=== PATIENT | male | born 1980 | race Hispanic/Latino ===

== ENCOUNTER 2017-11-09 12:24 | Emergency (ER) | payer SELFPAY ==
[2017-11-09 12:29] VITALS: BP 135/81
[2017-11-09] MEDS ORDERED: ZOFRAN ODT PO ONE (16:27)
--- NOTE | 2017-11-09 16:34 | Emergency Department Report ---
Chief Complaint: Upper Respiratory Infection Stated Complaint: FLU LIKE SYMPTOMS Time Seen by Provider: 11/09/17 15:50 - HPI History of Present Illness: Patient is a 37-year-old male with no significant past medical history was presented with a cough. Patient's cough is productive of clear to yellow phlegm. Patient states he also has had a sour stomach and nausea vomiting for the past 2 days. Cough has been present for 5 days. Patient is a former smoker but currently does still date. Her body aches as well denies diarrhea syncope chest pain or abdominal pain at this time - ROS Review of Systems: Review of systems is negative except for those elements in the HPI - Exam Vital Signs: Vital Signs 11/09/17 12:27 Temperature 97.8 F Pulse Rate 78 Respiratory 20 Rate Blood Pressure 135/81 O2 Sat by Pulse 98 Oximetry Physical Exam: Focused physical exam patient will general exam no acute distress lungs clear to auscultation chest normal heart tones no rash abdomen soft nontender nondistended skin normal neural exam motor extremity spontaneous vein O 3 MSE screening note: Focused history and physical exam performed. Due to findings the following was ordered: ED Medical Decision Making - Radiology Data Radiology results: image reviewed interpreted by me: No acute process - Medical Decision Making Patient is a former smoker will be treated for smoker's bronchitis with antibiotics and steroids nausea medicine ED Disposition for MSE Disposition: DC-01 TO HOME OR SELFCARE Is pt being admited?: No Does the pt Need Aspirin: No Condition: Fair Prescriptions: Azithromycin [Zithromax Z-STUART] 250 mg PO DAILY 5 Days #6 tablet Benzonatate [Tessalon Perles] 100 mg PO Q8HR #15 capsule Ondansetron [Zofran Odt] 4 mg PO Q8HR #12 tab.rapdis predniSONE [Deltasone] 20 mg PO QDAY #5 tab Referrals: CASEY SINGH MD [Primary Care Provider] - 3-5 Days
--- NOTE | 2017-11-09 18:03 | XRay Report ---
FINAL REPORT EXAM: XR CHEST ROUTINE 2V HISTORY: [facility] TECHNIQUE: Two view chest PA and lateral PRIORS: None. FINDINGS: Cardiac and mediastinal contours are unremarkable. No focal pulmonary infiltrate is identified. No pleural fluid collection seen. Pulmonary vasculature is unremarkable. IMPRESSION: Negative two-view chest
== END 2017-11-09 16:57 | disposition home or self-care (01) ==
LOC: ED 12:24
DX: R05 Cough (principal); R11.2 Nausea with vomiting, unspecified; Z53.21 Procedure and treatment not carried out due to patient leaving prior to being seen by health care provider
CPT/HCPCS: 71020; Q0162

== ENCOUNTER 2017-11-14 13:36 | Emergency (ER) | payer SELFPAY ==
[2017-11-14 13:41] VITALS: BP 125/79
[2017-11-14 14:05] LABS: Basophils % (Auto) 0.4 % (0.0-1.8); Eosinophils % (Auto) 0.4 % (0.0-4.3); Hematocrit 49.8 % (35.5-45.6); Hemoglobin 17.3 gm/dl (11.8-15.2); Mean Corpuscular HGB Conc 35 % (32-34); Mean Corpuscular Hemoglobin 31 pg (28-32); Mean Corpuscular Volume 90 fl (84-94); Platelet Count 301 K/mm3 (140-440); Red Blood Count 5.54 M/mm3 (3.65-5.03); White Blood Count 15.2 K/mm3 (4.5-11.0)
[2017-11-14 14:16] LABS: Anion Gap 19 mmol/L; BUN/Creatinine Ratio 14; Blood Urea Nitrogen 14 mg/dL (9-20); Calcium 9.4 mg/dL (8.4-10.2); Carbon Dioxide 28 mmol/L (22-30); Glucose 107 mg/dL (75-100); Potassium 3.7 mmol/L (3.6-5.0); Sodium 143 mmol/L (137-145)
== END 2017-11-14 18:45 | disposition left against medical advice (07) ==
LOC: ED 13:36
DX: R11.10 Vomiting, unspecified (principal); Z53.21 Procedure and treatment not carried out due to patient leaving prior to being seen by health care provider
CPT/HCPCS: 36415; 80048; 85025

== ENCOUNTER 2020-08-29 14:06 | Emergency (ER) | payer SELFPAY ==
[2020-08-29] MEDS ORDERED: ONDANSETRON 4 MG/2 ML INJ IV ONE (16:12)
[2020-08-29] MEDS ORDERED: SODIUM CHLORIDE 0.9% 1000 ML 1,000 ML IV ONE ×2 (16:12→17:21)
--- NOTE | 2020-08-29 16:12 | Emergency Department Report ---
Vomiting/Diarrhea - HPI Chief Complaint: Nausea/Vomiting/Diarrhea Stated Complaint: VOMIT Time Seen by Provider: 08/29/20 15:14 Duration: 4 Days Severity: mild Nausea/Vomiting Severity: Mild Diarrhea Severity: None Pain Location: Other (Sore throat) Symptoms: Yes Able to Tolerate Fluids (Drinking Pedialyte), No Watery Diarrhea, No Bloody diarrhea, No Fever, No Recent Unusual Foods, No Recent Untreated Water, No Recent use of Antibiotics, No Family w/ Similar Symptoms, No Contacts w/ Similar Symptoms, No Rash, No Hematuria, No Recent URI Symptoms Other History: 40-year-old male presents to the emergency room for body aches sore throat with nausea and vomiting since Monday. Patient denies any fever chills no abdominal pain. Patient states he last vomited 2 hours ago. Patient is been able to hold down Pedialyte. He denies any past medical history. Currently takes no medications on a daily basis and has no known drug allergies. ED Review of Systems ROS: Stated complaint: VOMIT Other details as noted in HPI Comment: All other systems reviewed and negative ED Past Medical Hx - Past Medical History Previous Medical History?: No - Surgical History Past Surgical History?: Yes Additional Surgical History: left hand surgery. T&A. Sinus - Social History Smoking Status: Never Smoker Substance Use Type: None - Medications Home Medications: Home Medications Medication Instructions Recorded Confirmed Last Taken Type cephALEXin [Keflex] 500 mg PO BID #20 capsule 04/14/15 Unknown Rx Docusate Sodium [Colace] 100 mg PO BID PRN #20 capsule 07/13/16 Unknown Rx HYDROcodone/APAP 5-325 [[place] 1 each PO Q6HR PRN #20 tablet 07/13/16 Unknown Rx 5/325] Ibuprofen [Motrin 800 MG tab] 800 mg PO TID PRN #30 tablet 07/13/16 Unknown Rx Ondansetron [Zofran Odt] 4 mg PO Q8HR PRN #30 tab.rapdis 07/13/16 Unknown Rx Azithromycin [Zithromax Z-STUART] 250 mg PO DAILY 5 Days #6 tablet 11/09/17 Unknown Rx Benzonatate [Tessalon Perles] 100 mg PO Q8HR #15 capsule 11/09/17 Unknown Rx Ondansetron [Zofran Odt] 4 mg PO Q8HR #12 tab.rapdis 11/09/17 Unknown Rx predniSONE [Deltasone] 20 mg PO QDAY #5 tab 11/09/17 Unknown Rx Naproxen 500 mg PO BID #20 tablet 08/17/20 Unknown Rx methOCARBAMOL [Robaxin TAB] 500 mg PO Q6H #20 tablet 08/17/20 Unknown Rx methylPREDNISolone [Medrol 4MG 4 mg PO QDAY #1 tab.ds.pk 08/17/20 Unknown Rx DOSEPAK (21 tabs)] Ondansetron [Zofran Odt] 4 mg PO Q8HR #12 tab.rapdis 08/29/20 Unknown Rx Vomiting Diarrhea Exam - Exam General: Vital signs noted. No distress. Alert and acting appropriately. Neurologic: Alert and oriented, no deficits. Musculoskeletal: Unremarkable. ED Course Vital Signs 08/29/20 14:12 Temperature 98.2 F Pulse Rate 89 Respiratory 16 Rate Blood Pressure 119/79 [Right] O2 Sat by Pulse 97 Oximetry ED Medical Decision Making - Lab Data Result diagrams: 08/29/20 16:17 08/29/20 16:17 - Radiology Data Radiology results: report reviewed Referring Physician:SERGIO CARLTONPatient Name:LYNDA VALDOVINOSPatient ID:[id number] of :[id number]:MaleAccession:[id number] Da te:[id number] Status:Finalized Findings [address] [address] XRay Report Signed Patient: LYNDA VALDOVINOS MR#: [id number] : 1980 Acct:[id number] Age/Sex: 40 / M ADM Date: 08/29/20 Loc: ED Attending Dr: Ordering Physician: CAITLYN LEAVITT Date of Service: 08/29/20 Procedure(s): XR chest 1V ap Accession Number(s): [id number] cc: CAITLYN LEAVITT Fluoro Time In Minutes: CHEST 1 VIEW, 08/29/2020 3:46 PM CLINICAL INFORMATION/INDICATION: Cough COMPARISON: Chest radiograph, 11/09/2017 FINDINGS: SUPPORT DEVICES: None. HEART: The cardiac silhouette is normal in size. LUNGS/PLEURA: The lungs appear clear of focal airspace disease or significant pleural effusion. ADDITIONAL FINDINGS: No additional acute findings. IMPRESSION: 1. No evidence of acute cardiopulmonary process. Signer Name: Ines Chandler MD Signed: 08/29/2020 4:51 PM Workstation Name: [id number] Transcribed By: LILLIANA Dictated By: Ines Chandler MD Electronically Authenticated By: Ines Chandler MD Signed Date/Time: 08/29/201650 DD/ 49 TD/TT: Referring Physician:SERGIO CARLTONPatient Name:LYNDA VALDOVINOSPatient ID:[id number] of :[id number]:MaleAccession:[id number] Date:[id number] Status:[place] [id number] Cat Scan Report Signed Patient: LYNDA VALDOVINOS MR#: [id number] : 1980 Acct:[id number] Age/Sex: 40 / M ADM Date: 08/29/20 Loc: ED Attending Dr: Ordering Physician: CAITLYN LEAVITT Date of Service: 08/29/20 Procedure(s): CT abdomen pelvis w con Accession Number(s): [id number] cc: CAITLYN LEAVITT CT ABDOMEN AND PELVIS WITH IV CONTRAST INDICATION: Nausea and vomiting for 4 days TECHNIQUE: Following the administration of intravenous contrast, multiple axial CT images of the abdomen and pelvis were acquired. Sagittal and coronal reformats were obtained. All CT performed at this facility utilize dose reduction techniques including automated exposure control, iterative reconstruction and weight based dosing when appropriate to reduce patient radiation dose to as low as reasonably achievable. COMPARISON: CT of the abdomen and pelvis, 07/13/2016 FINDINGS: Limited imaging of the bilateral lung bases demonstrates no acute abnormality. Abdomen: The liver, gallbladder, spleen, pancreas, bilateral adrenal glands and bilateral kidneys show no evidence of acute abnormality. Several simple cysts are again noted within the left kidney, the largest of which measures 1.8 cm. The abdominal aorta is normal in caliber. There is no evidence of bowel obstruction or free fluid. The appendix is visualized and appears normal. Pelvis: No free fluid is seen within the pelvis. The urinary bladder appears normal. A few coarse central calcifications are again noted within the prostate. Bones and Soft Tissues: Evaluation of bony structures demonstrates no evidence of acute bony abnormality. Soft tissue structures appear grossly normal. IMPRESSION: 1. No evidence of acute inflammatory or obstructive process within the abdomen or pelvis. Signer Name: Ines Chandler MD Signed: 08/29/2020 6:19 PM Workstation Name: [id number] Transcribed By: EB Dictated By: Ines Chandler MD Electronically Authenticated By: Ines Chandler MD Signed Date/Time: 08/29/201818 DD/ 14 TD/TT: - Medical Decision Making 40-year-old male presents to the emergency room for body aches sore throat with nausea and vomiting since Monday. Patient denies any fever chills no abdominal pain. Patient states he last vomited 2 hours ago. Patient is been able to hold down Pedialyte. He denies any past medical history. Currently takes no medications on a daily basis and has no known drug allergies. Patient started on a p.o. challenge. Patient failed p.o. challenge. Will place an IV normal saline Zofran 4 mg IV chest x-ray CBC CMP. Critical care attestation.: If time is entered above; I have spent that time in minutes in the direct care of this critically ill patient, excluding procedure time. ED Disposition Clinical Impression: Nausea and vomiting in adult patient, Cannabis hyperemesis syndrome concurrent with and due to cannabis dependence Disposition: DC-01 TO HOME OR SELFCARE Is pt being admited?: No Does the pt Need Aspirin: No Condition: Stable Instructions: Acute Nausea and Vomiting (ED), Cannabis Abuse (ED) Additional Instructions: Cannabinoid hyperemesis syndrome Cannabinoid hyperemesis syndrome is recurrent nausea, vomiting, and cramping ab dominal pain due to cannabis use. These symptoms may improve temporarily by taking a hot shower or bath. Complications may include kidney failure, electrolyte problems, and skin solorzano from hot water. A few deaths due to these complications have occurred. Please take the Zofran stop smoking weed as this can cause nausea and vomiting. Increase your fluid intake advance your diet as tolerated follow-up with your primary care provider. Prescriptions: Ondansetron [Zofran Odt] 4 mg PO Q8HR #12 tab.rapdis Referrals: [facility] [Provider Group] - 3-5 Days
[2020-08-29 16:30] LABS: Mean Corpuscular HGB Conc 35 % (32-34); Mean Corpuscular Volume 92 fl (84-94); Platelet Count 306 K/mm3 (140-440); Red Blood Count 6.17 M/mm3 (3.65-5.03); Red Cell Distribution Width 12.9 % (13.2-15.2)
[2020-08-29 16:46] LABS: Hematocrit 56.6 % (35.5-45.6)
[2020-08-29 16:53] LABS: Alanine Aminotransferase 41 units/L (7-56); Albumin 5.3 g/dL (3.9-5); BUN/Creatinine Ratio 24; Blood Urea Nitrogen 24 mg/dL (9-20); Calcium 10.4 mg/dL (8.4-10.2); Hemolysis Index 158
--- NOTE | 2020-08-29 16:56 | XRay Report ---
CHEST 1 VIEW, 08/29/2020 3:46 PM CLINICAL INFORMATION/INDICATION: Cough COMPARISON: Chest radiograph, 11/09/2017 FINDINGS: SUPPORT DEVICES: None. HEART: The cardiac silhouette is normal in size. LUNGS/PLEURA: The lungs appear clear of focal airspace disease or significant pleural effusion. ADDITIONAL FINDINGS: No additional acute findings. IMPRESSION: 1. No evidence of acute cardiopulmonary process. Signer Name: Ines Chandler MD Signed: 08/29/2020 4:51 PM Workstation Name: [id number]
[2020-08-29] MEDS ORDERED: METOCLOPRAMIDE 10 MG/2 ML INJ IV ONE (17:21)
[2020-08-29 17:48] LABS: Bilirubin,Urine NEG (Negative); Blood,Urine SM (Negative); Color,Urine Amber (Yellow); Mucus,Urine 3+ /HPF
[2020-08-29 18:20] LABS: Basophils % (Manual) 0 % (0.0-1.8); Eosinophils % (Manual) 0 % (0.0-4.3); RBC Morphology Normal; Total Cells Counted 100
--- NOTE | 2020-08-29 18:24 | Cat Scan Report ---
CT ABDOMEN AND PELVIS WITH IV CONTRAST INDICATION: Nausea and vomiting for 4 days TECHNIQUE: Following the administration of intravenous contrast, multiple axial CT images of the abdo men and pelvis were acquired. Sagittal and coronal reformats were obtained. All CT performed at this facility utilize dose reduction techniques including automated exposure control, iterative reconstru ction and weight based dosing when appropriate to reduce patient radiation dose to as low as reasonab ly achievable. COMPARISON: CT of the abdomen and pelvis, 07/13/2016 FINDINGS: Limited imaging of the bilateral lung bases demonstrates no acute abnormality. Abdomen: The liver, gallbladder, spleen, pancreas, bilateral adrenal glands and bilateral kidneys ty w no evidence of acute abnormality. Several simple cysts are again noted within the left kidney, the largest of which measures 1.8 cm. The abdominal aorta is normal in caliber. There is no evidence of b owel obstruction or free fluid. The appendix is visualized and appears normal. Pelvis: No free fluid is seen within the pelvis. The urinary bladder appears normal. A few coarse vlad tral calcifications are again noted within the prostate. Bones and Soft Tissues: Evaluation of bony structures demonstrates no evidence of acute bony abnormal ity. Soft tissue structures appear grossly normal. IMPRESSION: 1. No evidence of acute inflammatory or obstructive process within the abdomen or pelvis. Signer Name: Ines Chandler MD Signed: 08/29/2020 6:19 PM Workstation Name: [id number]
[2020-08-29 18:25] LABS: Amphetamine Screen,Urine PRESUMPTIVE NEGATIVE; Benzodiazepines Screen,Urine PRESUMPTIVE NEGATIVE; Cannabinoid Screen,Urine PRESUMPTIVE POSITIVE; Cocaine Screen,Urine PRESUMPTIVE NEGATIVE; Methadone Screen,Urine PRESUMPTIVE NEGATIVE; Opiate Screen,Urine PRESUMPTIVE NEGATIVE
[2020-08-29 18:44] LABS: Basophils % (Auto) 0.3 % (0.0-1.8); Eosinophils % (Auto) 0.1 % (0.0-4.3); Lymphocytes # (Auto) 1.6 K/mm3 (1.2-5.4); Lymphocytes % (Auto) 9.3 % (13.4-35.0); Mean Corpuscular HGB Conc 37 % (32-34); Mean Corpuscular Volume 90 fl (84-94); Monocytes # (Auto) 1.5 K/mm3 (0.0-0.8); Monocytes % (Auto) 8.3 % (0.0-7.3); Platelet Count 244 K/mm3 (140-440); Red Cell Distribution Width 12.7 % (13.2-15.2)
[2020-08-29 18:52] LABS: Hematocrit 48.4 % (35.5-45.6); Hemoglobin 17.6 gm/dl (11.8-15.2)
[2020-08-29 19:23] VITALS: BP 125/86
== END 2020-08-29 19:27 | disposition home or self-care (01) ==
LOC: ED 14:06
DX: F12.288 Cannabis dependence with other cannabis-induced disorder (principal); R11.2 Nausea with vomiting, unspecified; Z79.899 Other long term (current) drug therapy; Z98.890 Other specified postprocedural states
CPT/HCPCS: 36415; 71045; 74177; 80053; 80307; 81001; 83690; 85007; 85025; 96361; 96374; 96375; 99284; J2405; J2765; J7030; Q9967

== ENCOUNTER 2020-12-29 12:22 | Emergency (ER) | payer SELFPAY ==
[2020-12-29 12:47] VITALS: BP 130/64
[2020-12-29] MEDS ORDERED: ONDANSETRON 4 MG/2 ML INJ IV ONE (12:48)
[2020-12-29] MEDS ORDERED: SODIUM CHLORIDE 0.9% 1000 ML 1,000 ML IV ONE ×2 (12:48→13:47)
[2020-12-29] MEDS ORDERED: PROCHLORPERAZINE EDISYLATE 10 MG/2 ML VIAL IV ONE (13:00)
--- NOTE | 2020-12-29 13:02 | Emergency Department Report ---
ED N/V/D HPI - General Chief complaint: Nausea/Vomiting/Diarrhea Stated complaint: VOMITING Time Seen by Provider: 12/29/20 12:48 Source: patient Mode of arrival: Ambulatory Limitations: No Limitations - History of Present Illness Initial comments: Patient is a 40-year-old male who presents emergency room complaints of nausea and vomiting that began 3 days ago. He states that he is unable to tolerate by mouth intake. He denies any diarrhea, abdominal pain, back pain, urinary symptoms, hematochezia, melena, hematemesis, pain or swelling in the testicles. Patient was evaluated emergency department in August 2020 for the same symptoms and had a normal CT abdomen pelvis at that time. Patient's UDS was positive for marijuana at that time. He endorses heavy marijuana use and states that he last smoked 3 days ago. He reports that he "does not believe the marijuana is causing his symptoms and that the marijuana helps his appetite." He denies any past medical history. No allergies to medications. He endorses occasional alcohol use. He denies any other drug use. - Related Data Previous Rx's Medication Instructions Recorded Last Taken Type cephALEXin [Keflex] 500 mg PO BID #20 capsule 04/14/15 Unknown Rx Docusate Sodium [Colace] 100 mg PO BID PRN #20 capsule 07/13/16 Unknown Rx HYDROcodone/APAP 5-325 [[place] 1 each PO Q6HR PRN #20 tablet 07/13/16 Unknown Rx 5/325] Ibuprofen [Motrin 800 MG tab] 800 mg PO TID PRN #30 tablet 07/13/16 Unknown Rx Ondansetron [Zofran Odt] 4 mg PO Q8HR PRN #30 tab.rapdis 07/13/16 Unknown Rx Azithromycin [Zithromax Z-STUART] 250 mg PO DAILY 5 Days #6 tablet 11/09/17 Unknown Rx Benzonatate [Tessalon Perles] 100 mg PO Q8HR #15 capsule 11/09/17 Unknown Rx Ondansetron [Zofran Odt] 4 mg PO Q8HR #12 tab.rapdis 11/09/17 Unknown Rx predniSONE [Deltasone] 20 mg PO QDAY #5 tab 11/09/17 Unknown Rx Naproxen 500 mg PO BID #20 tablet 08/17/20 Unknown Rx methOCARBAMOL [Robaxin TAB] 500 mg PO Q6H #20 tablet 08/17/20 Unknown Rx methylPREDNISolone [Medrol 4MG 4 mg PO QDAY #1 tab.ds.pk 08/17/20 Unknown Rx DOSEPAK (21 tabs)] Ondansetron [Zofran Odt] 4 mg PO Q8HR #12 tab.rapdis 08/29/20 Unknown Rx Ondansetron [Zofran Odt] 4 mg PO Q8HR PRN #10 tab.rapdis 12/29/20 Unknown Rx Promethazine [Phenergan] 25 mg MI Q8HR PRN #7 supp.rect 12/29/20 Unknown Rx Allergies Allergy/AdvReac Type Severity Reaction Status Date / Time No Known Allergies Allergy Verified 12/29/20 12:42 ED Review of Systems ROS: Stated complaint: VOMITING Other details as noted in HPI Comment: All other systems reviewed and negative ED Past Medical Hx - Past Medical History Previous Medical History?: No - Surgical History Additional Surgical History: left hand surgery. T&A. Sinus - Social History Smoking Status: Current Every Day Smoker Substance Use Type: Marijuana - Medications Home Medications: Home Medications Medication Instructions Recorded Confirmed Last Taken Type cephALEXin [Keflex] 500 mg PO BID #20 capsule 04/14/15 Unknown Rx Docusate Sodium [Colace] 100 mg PO BID PRN #20 capsule 07/13/16 Unknown Rx HYDROcodone/APAP 5-325 [[place] 1 each PO Q6HR PRN #20 tablet 07/13/16 Unknown Rx 5/325] Ibuprofen [Motrin 800 MG tab] 800 mg PO TID PRN #30 tablet 07/13/16 Unknown Rx Ondansetron [Zofran Odt] 4 mg PO Q8HR PRN #30 tab.rapdis 07/13/16 Unknown Rx Azithromycin [Zithromax Z-STUART] 250 mg PO DAILY 5 Days #6 tablet 11/09/17 Unknown Rx Benzonatate [Tessalon Perles] 100 mg PO Q8HR #15 capsule 11/09/17 Unknown Rx Ondansetron [Zofran Odt] 4 mg PO Q8HR #12 tab.rapdis 11/09/17 Unknown Rx predniSONE [Deltasone] 20 mg PO QDAY #5 tab 11/09/17 Unknown Rx Naproxen 500 mg PO BID #20 tablet 08/17/20 Unknown Rx methOCARBAMOL [Robaxin TAB] 500 mg PO Q6H #20 tablet 08/17/20 Unknown Rx methylPREDNISolone [Medrol 4MG 4 mg PO QDAY #1 tab.ds.pk 08/17/20 Unknown Rx DOSEPAK (21 tabs)] Ondansetron [Zofran Odt] 4 mg PO Q8HR #12 tab.rapdis 08/29/20 Unknown Rx Ondansetron [Zofran Odt] 4 mg PO Q8HR PRN #10 tab.rapdis 12/29/20 Unknown Rx Promethazine [Phenergan] 25 mg MI Q8HR PRN #7 supp.rect 12/29/20 Unknown Rx ED Physical Exam - General Limitations: No Limitations General appearance: alert, in no apparent distress - Head Head exam: Present: atraumatic, normocephalic - Eye Eye exam: Present: normal appearance - ENT ENT exam: Present: mucous membranes dry (mildly) - Respiratory Respiratory exam: Present: normal lung sounds bilaterally. Absent: respiratory distress, wheezes, rales, rhonchi, stridor, chest wall tenderness, accessory muscle use, decreased breath sounds, prolonged expiratory - Cardiovascular Cardiovascular Exam: Present: regular rate, normal rhythm, normal heart sounds. Absent: systolic murmur, diastolic murmur, rubs, gallop - GI/Abdominal GI/Abdominal exam: Present: soft, normal bowel sounds. Absent: distended, tenderness, guarding, rebound, rigid - Neurological Exam Neurological exam: Present: alert, oriented X3 - Psychiatric Psychiatric exam: Present: normal affect, normal mood - Skin Skin exam: Present: warm, dry, intact ED Course Vital Signs 12/29/20 12/29/20 12:46 14:30 Temperature 98.6 F Pulse Rate 74 Respiratory 20 16 Rate Blood Pressure 130/64 [Right] O2 Sat by Pulse 96 Oximetry ED Medical Decision Making - Lab Data Result diagrams: 12/29/20 12:57 12/29/20 12:57 Lab Results 12/29/20 12/29/20 Range/Units 12:57 12:57 WBC 15.9 H (4.5-11.0) K/mm3 RBC 6.06 H (3.65-5.03) M/mm3 Hgb 19.6 H (11.8-15.2) gm/dl Hct 54.0 H (35.5-45.6) % MCV 89 (84-94) fl MCH 32 (28-32) pg MCHC 36 H (32-34) % RDW 12.5 L (13.2-15.2) % Plt Count 308 (140-440) K/mm3 Lymph % (Auto) 11.0 L (13.4-35.0) % [place] % (Auto) 9.9 H (0.0-7.3) % Eos % (Auto) 0.0 (0.0-4.3) % Baso % (Auto) 0.1 (0.0-1.8) % Lymph # (Auto) 1.7 (1.2-5.4) K/mm3 [place] # (Auto) 1.6 H (0.0-0.8) K/mm3 Eos # (Auto) 0.0 (0.0-0.4) K/mm3 Baso # (Auto) 0.0 (0.0-0.1) K/mm3 Seg Neutrophils % 79.0 H (40.0-70.0) % Seg Neutrophils # 12.5 H (1.8-7.7) K/mm3 Sodium 133 L (137-145) mmol/L Potassium 4.6 (3.6-5.0) mmol/L Chloride 93.3 L (98-107) mmol/L Carbon Dioxide 23 (22-30) mmol/L Anion Gap 21 mmol/L BUN 32 H (9-20) mg/dL Creatinine 1.4 H (0.8-1.3) mg/dL Estimated GFR 56 ml/min BUN/Creatinine Ratio 23 % Glucose 135 H (75-100) mg/dL Calcium 10.9 H (8.4-10.2) mg/dL Total Bilirubin 1.20 (0.1-1.2) mg/dL AST 22 (5-40) units/L ALT 23 (7-56) units/L Alkaline Phosphatase 96 (35-129) units/L Total Protein 8.3 H (6.3-8.2) g/dL Albumin 5.7 H (3.9-5) g/dL Albumin/Globulin Ratio 2.2 % Lipase 16 (13-60) units/L - Medical Decision Making Patient is a 40-year-old male who presents emergency room complaints of nausea and vomiting that began 3 days ago. He states that he is unable to tolerate by mouth intake. He denies any diarrhea, abdominal pain, back pain, urinary symptoms, hematochezia, melena, hematemesis, pain or swelling in the testicles. Patient was evaluated emergency department in August 2020 for the same sympt oms and had a normal CT abdomen pelvis at that time. Patient's UDS was positive for marijuana at that time. He endorses heavy marijuana use and states that he last smoked 3 days ago. He reports that he "does not believe the marijuana is causing his symptoms and that the marijuana helps his appetite." He denies any past medical history. No allergies to medications. He endorses occasional alco hol use. He denies any other drug use. Vitals are stable. No abdominal tenderness on exam, no guarding, no rebound no rigidity, normal bowel sounds, no peritoneal signs. Labs show evidence of dehydration, he has leukocytosis likely secondary to frequent vomiting and inflammatory reaction, he has hemoconcentration due to hypovolemia, mild WILLIAM. Patient given 2 L of normal saline, Zofran, Compazine and symptoms completely improved and he was feeling much better and ready to go home. He had no further episodes of vomiting while in the emergency department. He was able to tolerate p.o. intake. Symptoms are likely related to cannabinoid induced hyperemesis. He has been evaluated in the emergency department during 2 other visits for the same symptoms. Discussed marijuana cessation with patient. Discussed case with Dr. Yunior Caruso, ER attending who agrees with discharge. Patient given prescription for Zofran and Phenergan suppositories. Advised patient Please take medication as prescribed as needed. Increase your water intake over the next several days. Eat a bland liquid diet and slowly advance her diet as tolerated. Please stop marijuana and alcohol use. Follow-up with your primary care doctor. Follow-up with a GI doctor. Return to emergency room for any new or worsening symptoms. Critical care attestation.: If time is entered above; I have spent that time in minutes in the direct care of this critically ill patient, excluding procedure time. ED Disposition Clinical Impression: Marijuana use, Dehydration Nausea & vomiting Qualifiers: Vomiting type: unspecified Vomiting Intractability: non-intractable Qualified Code(s): R11.2 - Nausea with vomiting, unspecified Disposition: DC-01 TO HOME OR SELFCARE Is pt being admited?: No Does the pt Need Aspirin: No Condition: Stable Instructions: Cannabinoid Hyperemesis Syndrome Additional Instructions: Please take medication as prescribed as needed. Increase your water intake over the next several days. Eat a bland liquid diet and slowly advance her diet as tolerated. Please stop marijuana and alcohol use. Follow-up with your primary care doctor. Follow-up with a GI doctor. Return to emergency room for any new or worsening symptoms. Prescriptions: Promethazine [Phenergan] 25 mg MI Q8HR PRN #7 supp.rect PRN Reason: vomiting Ondansetron [Zofran Odt] 4 mg PO Q8HR PRN #10 tab.rapdis PRN Reason: nausea and vomiting Referrals: KHUSHBU WATERS MD [Staff Physician] - 2-3 Days [facility] [Provider Group] - 2-3 Days [facility] [Provider Group] - 2-3 Days Time of Disposition: 14:46 Print Language: INDONESIAN
[2020-12-29 13:11] LABS: Basophils % (Auto) 0.1 % (0.0-1.8); Lymphocytes # (Auto) 1.7 K/mm3 (1.2-5.4); Mean Corpuscular HGB Conc 36 % (32-34); Mean Corpuscular Volume 89 fl (84-94); Monocytes # (Auto) 1.6 K/mm3 (0.0-0.8); Monocytes % (Auto) 9.9 % (0.0-7.3); Platelet Count 308 K/mm3 (140-440); Red Blood Count 6.06 M/mm3 (3.65-5.03); Red Cell Distribution Width 12.5 % (13.2-15.2)
[2020-12-29 13:12] LABS: Hemoglobin 19.6 gm/dl (11.8-15.2)
[2020-12-29 13:32] LABS: Albumin 5.7 g/dL (3.9-5); Calcium 10.9 mg/dL (8.4-10.2)
== END 2020-12-29 15:45 | disposition home or self-care (01) ==
LOC: ED 12:22
DX: E86.0 Dehydration (principal); R11.2 Nausea with vomiting, unspecified; F17.200 Nicotine dependence, unspecified, uncomplicated; F12.90 Cannabis use, unspecified, uncomplicated; Z79.899 Other long term (current) drug therapy; Z98.890 Other specified postprocedural states
CPT/HCPCS: 36415; 80053; 83690; 85025; 96361; 96374; 96375; 99283; J0780; J2405; J7030

== ENCOUNTER 2022-07-12 12:54 | Emergency (ER) | payer SELFPAY ==
[2022-07-12] MEDS ORDERED: LIDOCAINE-MPF (1%) 10 MG/1 ML VIAL 5 ML INFILTRATI ONE (15:25)
--- NOTE | 2022-07-12 15:26 | Emergency Department Report ---
ED Dysuria HPI - HPI Chief Complaint: Urogenital-Male Stated Complaint: BURN WHILE URINATION Time Seen by Provider: 07/12/22 15:04 Duration: 3 Days Severity: Mild Symptoms: Dysuria: Yes, Frequency: No, Suprapubic Pain: No, Flank Pain: No, Fever: No, Hematuria: No, Abdominal Pain: No, Previous UTI's: No Other History: 42 yo comes to ER with dysuria. co for STD. no d/c. not forthcoming with information. no fever/chills. no n/v/d. ambulatory and nad ED Review of Systems ROS: Stated complaint: BURN WHILE URINATION Other details as noted in HPI Comment: All other systems reviewed and negative ED Past Medical Hx - Past Medical History Previous Medical History?: No - Surgical History Past Surgical History?: Yes Additional Surgical History: left hand surgery. T&A. Sinus - Family History Family history: no significant - Social History Smoking Status: Current Every Day Smoker Substance Use Type: Marijuana - Medications Home Medications: Home Medications Medication Instructions Recorded Confirmed Last Taken Type cephALEXin [Keflex] 500 mg PO BID #20 capsule 04/14/15 Unknown Rx Docusate Sodium [Colace] 100 mg PO BID PRN #20 capsule 07/13/16 Unknown Rx HYDROcodone/APAP 5-325 [[place] 1 each PO Q6HR PRN #20 tablet 07/13/16 Unknown Rx 5/325] Ibuprofen [Motrin 800 MG tab] 800 mg PO TID PRN #30 tablet 07/13/16 Unknown Rx Ondansetron [Zofran Odt] 4 mg PO Q8HR PRN #30 tab.rapdis 07/13/16 Unknown Rx Azithromycin [Zithromax Z-STUART] 250 mg PO DAILY 5 Days #6 tablet 11/09/17 Unknown Rx Benzonatate [Tessalon Perles] 100 mg PO Q8HR #15 capsule 11/09/17 Unknown Rx Ondansetron [Zofran Odt] 4 mg PO Q8HR #12 tab.rapdis 11/09/17 Unknown Rx predniSONE [Deltasone] 20 mg PO QDAY #5 tab 11/09/17 Unknown Rx Naproxen 500 mg PO BID #20 tablet 08/17/20 Unknown Rx methOCARBAMOL [Robaxin TAB] 500 mg PO Q6H #20 tablet 08/17/20 Unknown Rx methylPREDNISolone [Medrol 4MG 4 mg PO QDAY #1 tab.ds.pk 08/17/20 Unknown Rx DOSEPAK (21 tabs)] Ondansetron [Zofran Odt] 4 mg PO Q8HR #12 tab.rapdis 08/29/20 Unknown Rx Ondansetron [Zofran Odt] 4 mg PO Q8HR PRN #10 tab.rapdis 12/29/20 Unknown Rx Promethazine [Phenergan] 25 mg [place] Q8HR PRN #7 supp.rect 12/29/20 Unknown Rx Azithromycin [Zithromax Z-STUART] 1,000 mg PO ONCE #4 07/12/22 Unknown Rx metroNIDAZOLE [Flagyl] 500 mg PO ONCE #4 tab 07/12/22 Unknown Rx Dysuria Exam - Exam General: Vital signs noted. No distress. Alert and acting appropriately. Exam: Yes Moist Mucous Membranes, No CVA Tenderness, No Abdominal Tenderness, No Rigidity or Guarding ED Course Vital Signs 07/12/22 14:44 Temperature 97.9 F Pulse Rate 71 Respiratory 14 Rate Blood Pressure 106/91 [Right] O2 Sat by Pulse 98 Oximetry ED Medical Decision Making - Medical Decision Making gc sent from triage no discharge but pt states std is very likely will empirically treat rocephin 1 gm IM and dc with azithro and flagyl Vital Signs 07/12/22 14:44 Temperature 97.9 F Pulse Rate 71 Respiratory 14 Rate Blood Pressure 106/91 [Right] O2 Sat by Pulse 98 Oximetry no fever or chills no back pain no abd pain no cva tenderness non ill appearing dc home with dc plan of care including diet, meds, activity and follow up. he verbalizes understanding of plan of care. - Differential Diagnosis std Critical care attestation.: If time is entered above; I have spent that time in minutes in the direct care of this critically ill patient, excluding procedure time. ED Disposition Clinical Impression: Concern about STD in male without diagnosis Disposition: 01 HOME / SELF CARE / HOMELESS Is pt being admited?: No Does the pt Need Aspirin: No Condition: Stable Instructions: Safe Sex Additional Instructions: get 2 meds filled today and take all at one time. Prescriptions: metroNIDAZOLE [Flagyl] 500 mg PO ONCE #4 tab Azithromycin [Zithromax Z-STUART] 1,000 mg PO ONCE #4 Referrals: CARBUCCIA,KHUSHBU, MD [Primary Care Provider] - 3-5 Days Forms: Work/School Release Form(ED) Time of Disposition: 15:24
[2022-07-12 16:22] LABS: Amorphous Crystals,Urine Few; Mucus,Urine FEW /HPF
[2022-07-12 17:02] LABS: Color,Urine Straw (Yellow)
[2022-07-12 17:13] VITALS: BP 108/76
== END 2022-07-12 17:12 | disposition home or self-care (01) ==
LOC: ED 12:54
DX: Z20.2 Contact with and (suspected) exposure to infections with a predominantly sexual mode of transmission (principal); R30.0 Dysuria; R35.0 Frequency of micturition; F17.200 Nicotine dependence, unspecified, uncomplicated; F12.90 Cannabis use, unspecified, uncomplicated; Z79.899 Other long term (current) drug therapy
CPT/HCPCS: 81001; 96372; 99283; J0696; J3490